=== PATIENT | male | born 1975 | race Caucasian/White ===

== ENCOUNTER 2017-01-22 04:59 | Emergency (ER) | payer MEDICAID ==
[~2017-01-22] VITALS: Ht 165.1 cm; Wt 83.0 kg
[~2017-01-22 04:59] MED LIST: CLOP75TA2; HYDR25TA; LEVE10006; METO-298; PHEN100C4; SIMV20TA6
[2017-01-22] MEDS ORDERED: SODIUM CHLORIDE 0.9% 1,000 ML IV ONE (05:18)
[2017-01-22 05:55] LABS: BASOPHILS % 0.4 % (0.0-2.0); EOSINOPHILS % 2.3 % (0.0-5.0); HEMATOCRIT. 43.9 % (42.0-52.0); HEMOGLOBIN. 14.9 g/dL (14.0-18.0); LYMPHOCYTES % 18.3 % (20.0-50.0); MEAN CORPUSCULAR VOLUME 97.1 fL (80.0-94.0); MEAN PLATELET VOLUME 8.3 fl (7.4-10.4); MONOCYTES % 4.5 % (2.0-8.0); NEUTROPHILS % 74.5 % (40.0-76.0); PLATELET 122 x1000/uL (130-400); RED BLOOD CELL COUNT 4.53 mill/uL (4.7-6.1); RED CELL DISTRIBUTION WIDTH 12.9 % (11.6-14.6); WHITE BLOOD COUNT 7.4 x1000/uL (4.5-11.0)
[2017-01-22 06:07] LABS: AMMONIA 29 uMol/L (<32); INDEX HEMOLYSI 3 (1-3)
[2017-01-22 06:14] LABS: ACETAMINOPHEN < 2 ug/mL (10-30); ALANINE AMINOTRANSFERASE 43 IU/L (13-61); ANION GAP 14; CALCIUM 8.3 mg/dL (8.5-10.1); CARBON DIOXIDE 28 mEq/L (21-32); CHLORIDE 102 mEq/L (98-107); CREATINE KINASE 268 IU/L (39-308); ETHANOL BLOOD < 10 mg/dL; INDEX HEMOLYSI 1 (1-3); INDEX ICTERIC 1 (1-4); INDEX LIPEMIC 1 (1-3); TROPONIN I 0.02 ng/mL (0.00-0.04); UREA NITROGEN BLOOD 22 mg/dL (7-21); eGFR > 60 mL/min (>60)
[2017-01-22] MEDS ORDERED: PHEN100C12 PO (06:20)
[2017-01-22 07:19] LABS: *AMPHETAMINES SCREEN URINE NEGATIVE (NEGATIVE); *BARBITURATES SCREEN URINE NEGATIVE (NEGATIVE); *BENZODIAZEPINES SCREEN URINE NEGATIVE (NEGATIVE); *COCAINE SCREEN URINE NEGATIVE (NEGATIVE); CANNABINOID URINE SCREEN PRESUMTIVE POSITIVE (NEGATIVE); ECSTASY MDMA SCREEN URINE NEGATIVE (NEGATIVE); METHADONE URINE SCREEN NEGATIVE (NEGATIVE); OPIATES URINE SCREEN NEGATIVE (NEGATIVE); PHENCYCLIDINE URINE SCREEN NEGATIVE (NEGATIVE)
[2017-01-22 07:30] VITALS: BP 140/83
== END 2017-01-22 07:58 | disposition home or self-care (01) ==
LOC: ER 05:24
DX: G40.909 Epilepsy, unspecified, not intractable, without status epilepticus (principal); I10 Essential (primary) hypertension; E78.00 Pure hypercholesterolemia, unspecified; Z86.73 Personal history of transient ischemic attack (TIA), and cerebral infarction without residual deficits; F12.10 Cannabis abuse, uncomplicated
CPT/HCPCS: 36415; 80053; 80185; 80305; 80329; 82140; 82550; 82962; 84443; 84484; 85025; 93005; 96360; 96361; 99285; G0482; J7030; Z7610; 80307

== ENCOUNTER 2018-11-05 04:37 | Emergency (ER) | payer MEDICAID ==
[~2018-11-05] VITALS: Ht 172.7 cm; Wt 90.0 kg
[~2018-11-05 04:37] MED LIST changes: +CLOP75TA15; -CLOP75TA2; -METO-298; +METO-385; +PHEN100C12 PO
[2018-11-05] MEDS ORDERED: SODIUM CHLORIDE 0.9% 1,000 ML IV ONE (04:55)
[2018-11-05] MEDS ORDERED: LEVETIRACETAM 1000MG/100ML 100 ML IV ONE (05:00)
[2018-11-05 05:37] LABS: BASOPHILS % 0.7 % (0.0-2.0); EOSINOPHILS % 3.7 % (0.0-5.0); HEMOGLOBIN. 14.9 g/dL (14.0-18.0); LYMPHOCYTES % 22.9 % (20.0-50.0); MEAN CORPUSCULAR HEMOGLOBIN 33.7 pg (28.0-32.0); MEAN PLATELET VOLUME 8.4 fl (7.4-10.4); MONOCYTES % 6.2 % (2.0-8.0); NEUTROPHILS % 66.5 % (40.0-76.0); PLATELET 157 x1000/uL (130-400); RED BLOOD CELL COUNT 4.43 mill/uL (4.7-6.1); RED CELL DISTRIBUTION WIDTH 12.9 % (11.6-14.6)
[2018-11-05 05:40] LABS: CHLORIDE 106 mEq/L (98-107)
[2018-11-05 05:43] LABS: INR 1.1; PARTIAL THROMBOPLASTIN TIME 24.4 sec (23.4-31.0); PROTHROMBIN TIME 10.6 sec (9.1-11.1)
[2018-11-05 05:44] LABS: ETHANOL BLOOD < 10 mg/dL
[2018-11-05 05:49] LABS: CREATINE KINASE 142 IU/L (39-308)
[2018-11-05] MEDS ORDERED: PHENYTOIN SODIUM EXTENDED 100MG CAPSULE PO ONE (06:00)
[2018-11-05] MEDS ORDERED: SODIUM CHLORIDE 0.45% 1,000 ML IV SCH (06:14)
[2018-11-05] MEDS ORDERED: HYDROMORPHONE HCL/PF 2MG/ML CPJ IV PRN (06:15)
[2018-11-05] MEDS ORDERED: DOCUSATE SODIUM 100MG CAPSULE PO PRN (06:15)
[2018-11-05] MEDS ORDERED: CLONIDINE 0.1MG TABLET PO PRN (06:15)
[2018-11-05] MEDS ORDERED: NA PHOS,M-B/NA PHOS,DI-BA ENEMA 118ML PR PRN (06:15)
[2018-11-05] MEDS ORDERED: IPRATROPIUM/ALBUTEROL 0.5-3(2.5)MG/3ML NEB INH PRN (06:15)
[2018-11-05] MEDS ORDERED: MAGNESIUM/ALUMINUM HYDROXIDE/SIMETHICONE 30ML UDC PO PRN (06:15)
[2018-11-05] MEDS ORDERED: DIPHENHYDRAMINE 50MG/ML VIAL IV PRN (06:15)
[2018-11-05] MEDS ORDERED: ACETAMINOPHEN 325MG TABLET PO PRN (06:15)
[2018-11-05] MEDS ORDERED: HYDROCODONE/ACETAMINOPHEN 5/325MG TABLET PO PRN (06:15)
[2018-11-05] MEDS ORDERED: ONDANSETRON HCL 4MG/2ML INJ IV PRN (06:15)
[2018-11-05] MEDS ORDERED: GUAIFENESIN 200MG/10ML SUGAR FREE UDC PO PRN (06:15)
[2018-11-05 06:41] LABS: CLARITY URINE CLEAR (CLEAR); COLOR URINE YELLOW (YELLOW); KETONES URINE NEGATIVE (NEGATIVE); LEUKOCYTE ESTERASE URINE NEGATIVE (NEGATIVE); NITRITE URINE NEGATIVE (NEGATIVE); OCCULT BLOOD URINE TRACE (NEGATIVE); PROTEIN URINE NEGATIVE (NEGATIVE); SPECIFIC GRAVITY URINE 1.013 (1.005-1.030); UROBILINOGEN URINE 0.2 E.U./dL (0.2-1.0)
[2018-11-05 06:44] LABS: CHLORIDE 106 mEq/L (98-107)
[2018-11-05 06:45] VITALS: BP 117/90
[2018-11-05 07:02] LABS: *AMPHETAMINES SCREEN URINE NEGATIVE (NEGATIVE); *BARBITURATES SCREEN URINE NEGATIVE (NEGATIVE); *BENZODIAZEPINES SCREEN URINE NEGATIVE (NEGATIVE); *COCAINE SCREEN URINE NEGATIVE (NEGATIVE)
[2018-11-05 07:03] LABS: CANNABINOID URINE SCREEN PRESUMTIVE POSITIVE (NEGATIVE); METHADONE URINE SCREEN NEGATIVE (NEGATIVE); OPIATES URINE SCREEN NEGATIVE (NEGATIVE); PHENCYCLIDINE URINE SCREEN NEGATIVE (NEGATIVE)
[2018-11-05] MEDS ORDERED: ASPIRIN 81MG EC TABLET PO SCH (09:00)
== END 2018-11-05 07:20 | disposition left against medical advice (07) ==
LOC: ER 04:37 → EDBEDREQ 06:00 → EDBEDREQTM 06:00 → CANRESERV 07:04 → ENRESERV 07:04 → EDRESERV 07:04 → ER 07:20 → CANBEDREQ 07:21
DX: G40.909 Epilepsy, unspecified, not intractable, without status epilepticus (principal); G93.40 Encephalopathy, unspecified; E86.0 Dehydration; I10 Essential (primary) hypertension; F12.10 Cannabis abuse, uncomplicated; E83.51 Hypocalcemia; R94.31 Abnormal electrocardiogram [ECG] [EKG]; I69.351 Hemiplegia and hemiparesis following cerebral infarction affecting right dominant side
CPT/HCPCS: 36415; 70450; 80048; 80053; 80185; 80305; 81003; 82550; 83690; 83735; 83880; 84484; 85025; 85610; 85730; 93005; 96365; 96366; 99284; G0482; J1953; J7030

== ENCOUNTER 2024-12-17 01:07 | Inpatient (IN) | payer MEDICAID ==
[~2024-12-17] VITALS: Ht 172.7 cm; Wt 94.8 kg
[~2024-12-17 01:07] MED LIST changes: +SIMV-43; -SIMV20TA6
[2024-12-17] MEDS: ONDANSETRON HCL 4MG/2ML INJ IV STA (01:35)
[2024-12-17] MEDS: LEVETIRACETAM 1000MG PREMIX 100 ML IV ONE (01:35)
[2024-12-17 01:54] LABS: BG BASE EXCESS -0.9 mmol/L (-2.0-3.0); BG CARBOXYHEMOGLOBIN 0.9 % (0.5-1.5); BG FRACTION INSPIRED OXYGEN 100; BG HCO3 ACT 27.8 mmol/L (21.0-28.0); BG METHEMOGLOBIN 0.3 % (0.5-1.5); BG OXYHEMOGLOBIN 97.8 % (94.0-98.0); BG PCO2 62.9 mmHg (35.0-48.0); BG PH 7.263 (7.350-7.450); BG PO2 157.2 mmHg (83.0-108.0); BG TOTAL HEMOGLOBIN 15.5 g/dL (13.5-17.5); BG VENT MODE MASK - NRB
[2024-12-17 01:57] LABS: BASOPHILS % 0.5 % (0.0-2.0); EOSINOPHILS % 2.8 % (0.0-5.0); HEMATOCRIT. 42.3 % (42.0-52.0); HEMOGLOBIN. 14.6 g/dL (14.0-18.0); LYMPHOCYTES % 23.5 % (20.0-50.0); MEAN CORPUSCULAR HEMOGLOBIN 33.8 pg (28.0-32.0); MEAN CORPUSCULAR HGB CONC 34.4 g/dL (31.0-37.0); MEAN CORPUSCULAR VOLUME 98.2 fL (80.0-94.0); MEAN PLATELET VOLUME 8.2 fl (7.4-10.4); MONOCYTES % 5.7 % (2.0-8.0); NEUTROPHILS % 67.5 % (40.0-76.0); PLATELET 206 x1000/uL (130-400); RED BLOOD CELL COUNT 4.31 mill/uL (4.7-6.1); RED CELL DISTRIBUTION WIDTH 12.5 % (11.6-14.6); WHITE BLOOD COUNT 6.6 x1000/uL (4.5-11.0)
[2024-12-17 02:02] LABS: CHLORIDE 112 mEq/L (98-107); SODIUM 144 mEq/L (136-145)
[2024-12-17 02:03] LABS: CALCIUM 7.3 mg/dL (8.7-10.4); CARBON DIOXIDE 23 mEq/L (21-32)
[2024-12-17 02:08] LABS: CREATININE 0.7 mg/dL (0.6-1.3); GLUCOSE 127 mg/dL (70-105); UREA NITROGEN BLOOD 12 mg/dL (9-23)
[2024-12-17 02:09] LABS: TROPONIN I HIGH SENSITIVITY 14 ng/L (3.0-53)
[2024-12-17 02:10] LABS: CREATINE KINASE 178 IU/L (46-171)
[2024-12-17 02:11] LABS: ETHANOL BLOOD < 10 mg/dL (<10)
[2024-12-17 02:12] LABS: POTASSIUM 2.7 mEq/L (3.5-5.1)
[2024-12-17] MEDS: POTASSIUM CHLORIDE 20MEQ/PACKET PO ONE (03:50)
[2024-12-17] MEDS ORDERED: GUAIFENESIN 200MG/10ML SUGAR FREE UDC PO PRN (05:30)
[2024-12-17] MEDS ORDERED: ONDANSETRON HCL 4MG/2ML INJ IV PRN (05:30)
[2024-12-17] MEDS ORDERED: IPRATROPIUM/ALBUTEROL 0.5-3(2.5)MG/3ML NEB HHN PRN (05:30)
[2024-12-17] MEDS ORDERED: ACETAMINOPHEN 325MG TABLET PO PRN (05:30)
[2024-12-17] MEDS ORDERED: DOCUSATE SODIUM 100MG CAPSULE PO PRN (05:30)
[2024-12-17] MEDS ORDERED: CLONIDINE 0.1MG TABLET PO PRN (05:30)
[2024-12-17] MEDS ORDERED: LORAZEPAM 2MG/ML INJ IV PRN (05:30)
[2024-12-17] MEDS ORDERED: MAGNESIUM/ALUMINUM HYDROXIDE/SIMETHICONE 30ML UDC PO PRN (05:30)
[2024-12-17 05:38] LABS: TROPONIN I HIGH SENSITIVITY 27 ng/L (3.0-53)
[2024-12-17] MEDS: KCL 20MEQ/100ML PREMIX 100 ML IV NR (06:08)
[2024-12-17] MEDS: SODIUM CHLORIDE 0.9% 1,000 ML IV ONE (06:08)
[2024-12-17] MEDS: POTASSIUM CHLORIDE 20MEQ TABLET SR PO NR (06:42)
[2024-12-17] MEDS: LEVETIRACETAM 1000MG PREMIX 100 ML IV SCH (09:28)
[2024-12-17] MEDS: FAMOTIDINE 20MG/2ML VIAL IV SCH (10:22)
[2024-12-17 12:36] LABS: CREATINE KINASE 252 IU/L (46-171)
[2024-12-17 15:00] VITALS: BP 128/88; PULSE 78; RESP 19; TEMP 37.1
[2024-12-17] MEDS: ACETAMINOPHEN 325MG TABLET PO PRN (15:35)
[2024-12-17 16:00] VITALS: BP 129/60; PULSE 76; RESP 19; TEMP 37.1; O2SAT 98
[2024-12-17 18:00] VITALS: BP 128/86; PULSE 68; RESP 19; O2SAT 97
[2024-12-17 20:00] VITALS: BP 134/87; PULSE 64; RESP 15; TEMP 36.7; O2SAT 97
[2024-12-17 22:00] VITALS: BP 130/85; PULSE 66; RESP 20; O2SAT 97
[2024-12-18] VITALS (8 sets, daily range): BP systolic 128–142; BP diastolic 84–97; PULSE 55–63; RESP 15–20; TEMP 36.4–37.4; O2SAT 91–100
[2024-12-18 02:12] LABS: POTASSIUM 3.7 mEq/L (3.5-5.1)
[2024-12-18 02:20] LABS: CREATINE KINASE 198 IU/L (46-171)
[2024-12-18 05:21] LABS: CLARITY URINE CLOUDY (CLEAR); COLOR URINE YELLOW (YELLOW); GLUCOSE URINE NEGATIVE (NEGATIVE); KETONES URINE NEGATIVE (NEGATIVE); LEUKOCYTE ESTERASE URINE NEGATIVE (NEGATIVE); NITRITE URINE NEGATIVE (NEGATIVE); OCCULT BLOOD URINE 1+ (NEGATIVE); PROTEIN URINE 1+ (NEGATIVE); UROBILINOGEN URINE 0.2 E.U./dL (0.2-1.0)
[2024-12-18 05:37] LABS: SQUAMOUS EPITHELIAL CELL URINE FEW /lpf (RARE/1+)
[2024-12-18 05:38] LABS: WBC URINE 0-2 /hpf (0-2); YEAST URINE 1+
[2024-12-18 05:39] LABS: AMORPHOUS SEDIMENT URINE 1+ /lpf; BACTERIA URINE TRACE; RBC URINE 0-2 /hpf (0-2)
[2024-12-18 06:04] LABS: *AMPHETAMINES SCREEN URINE NEGATIVE (NEGATIVE); *BARBITURATES SCREEN URINE NEGATIVE (NEGATIVE); *BENZODIAZEPINES SCREEN URINE PRESUMPTIVE POSITIVE (NEGATIVE); *COCAINE SCREEN URINE NEGATIVE (NEGATIVE); CANNABINOID URINE SCREEN PRESUMPTIVE POSITIVE (NEGATIVE); ECSTASY MDMA SCREEN URINE NEGATIVE (NEGATIVE); METHADONE URINE SCREEN NEGATIVE (NEGATIVE); OPIATES URINE SCREEN NEGATIVE (NEGATIVE); PHENCYCLIDINE URINE SCREEN NEGATIVE (NEGATIVE)
[2024-12-18 08:08] LABS: BASOPHILS % 0.4 % (0.0-2.0); EOSINOPHILS % 2.1 % (0.0-5.0); HEMOGLOBIN. 15.1 g/dL (14.0-18.0); LYMPHOCYTES % 24.1 % (20.0-50.0); MEAN CORPUSCULAR HEMOGLOBIN 34.1 pg (28.0-32.0); MEAN CORPUSCULAR HGB CONC 35.2 g/dL (31.0-37.0); MEAN CORPUSCULAR VOLUME 96.9 fL (80.0-94.0); MEAN PLATELET VOLUME 8.6 fl (7.4-10.4); MONOCYTES % 7.8 % (2.0-8.0); NEUTROPHILS % 65.6 % (40.0-76.0); PLATELET 212 x1000/uL (130-400); RED BLOOD CELL COUNT 4.44 mill/uL (4.7-6.1); RED CELL DISTRIBUTION WIDTH 12.7 % (11.6-14.6); WHITE BLOOD COUNT 9.7 x1000/uL (4.5-11.0)
[2024-12-18 08:31] LABS: CALCIUM 9.5 mg/dL (8.7-10.4); CARBON DIOXIDE 25 mEq/L (21-32); CHLORIDE 106 mEq/L (98-107); SODIUM 140 mEq/L (136-145)
[2024-12-18 08:34] LABS: T4 FREE 1.15 ng/dL (0.89-1.76); THYROID STIMULATING HORMONE 0.68 uIU/mL (0.55-4.78)
[2024-12-18 08:35] LABS: CREATININE 0.9 mg/dL (0.6-1.3)
[2024-12-18 08:37] LABS: CHOLESTEROL 165 mg/dL (<200); GLUCOSE 99 mg/dL (70-105); TRIGLYCERIDE 109 mg/dL (0-150)
[2024-12-18 08:38] LABS: LDL CHOLESTEROL 76 mg/dL (5-100); UREA NITROGEN BLOOD 12 mg/dL (9-23)
[2024-12-18 08:39] LABS: HDL CHOLESTEROL 57 mg/dL (>55)
[2024-12-18] MEDS ORDERED: LEVE10006 PO (11:27)
[2024-12-18] MEDS ORDERED: PHEN100C12 PO (11:27)
== END 2024-12-18 12:35 | disposition home or self-care (01) | DRG 53 ==
LOC: ER 01:15 → 5EST 05:02
PROVIDERS: ADMIT Internal Medicine; ATTEND Internal Medicine
DX: G40.401 Other generalized epilepsy and epileptic syndromes, not intractable, with status epilepticus (principal); G92.8 Other toxic encephalopathy; R47.01 Aphasia; G93.89 Other specified disorders of brain; E87.6 Hypokalemia; I10 Essential (primary) hypertension; T42.6X6A Underdosing of other antiepileptic and sedative-hypnotic drugs, initial encounter; Y92.89 Other specified places as the place of occurrence of the external cause; Z91.148 Patient's other noncompliance with medication regimen for other reason; Z79.899 Other long term (current) drug therapy; I69.331 Monoplegia of upper limb following cerebral infarction affecting right dominant side
CPT/HCPCS: 36415; 36600; 71045; 80048; 80061; 80305; 80320; 81003; 82375; 82550; 82805; 83605; 84132; 84439; 84443; 84484; 85025; 93005; 97165; 99291; A4606; J1953; J2405; J3480; J3490; G0480